=== PATIENT | female | born 1970 | race Hispanic/Latino ===

== ENCOUNTER → 2017-04-10 | Outpatient (CLI) | payer MEDICAID | END | disposition home or self-care (01) | LOC: RAH 09:13 | PROVIDERS: ATTEND Internal Medicine Gastroenterology | DX: K76.0 Fatty (change of) liver, not elsewhere classified (principal); Z90.81 Acquired absence of spleen | CPT/HCPCS: 76700; 78264; A9541 ==

== ENCOUNTER → 2017-12-13 | Outpatient (CLI) | payer MEDICAID ==
[~2017-12-13] MED LIST: ACET1TAB12 PO; AMYL1CAP63 PO; HYDR-4064 PO; INSU3INS9 SQ; LEVO125T11 PO; LEVO50TA11 PO; MAGOX PO; METF-446 PO; PIOG45TA64 PO; SAXA5TAB PO
== END | disposition home or self-care (01) ==
LOC: RAH 08:13
PROVIDERS: ATTEND Internal Medicine Gastroenterology
DX: K80.20 Calculus of gallbladder without cholecystitis without obstruction (principal); Z90.81 Acquired absence of spleen
CPT/HCPCS: 76700

== ENCOUNTER 2018-02-05 11:28 | Emergency (ER) | payer MEDICAID | END 2018-02-05 12:32 | disposition home or self-care (01) | LOC: EDH 11:28 | DX: Z48.01 Encounter for change or removal of surgical wound dressing (principal); J45.909 Unspecified asthma, uncomplicated; Z85.07 Personal history of malignant neoplasm of pancreas; Z90.710 Acquired absence of both cervix and uterus; Z90.49 Acquired absence of other specified parts of digestive tract; Z98.890 Other specified postprocedural states | CPT/HCPCS: 99281 ==

== ENCOUNTER 2018-07-15 18:50 | Emergency (ER) | payer MEDICAID, OTHER ==
[2018-07-15 19:36] LABS: RAPID GROUP A STREP NEGATIVE (NEGATIVE)
[2018-07-15] MEDS ORDERED: DEXAMETHASONE SOD PHOSPHATE 10MG/ML 1ML VIAL ONE (19:38)
[2018-07-15] MEDS ORDERED: ACETAMINOPHEN 325 MG TAB ONE (19:38)
[2018-07-15] MEDS ORDERED: IPRATROPIUM/ALBUTEROL SULFATE 3 ML SOLUTION IH ONE (19:44)
[2018-07-15] MEDS ORDERED: LIDOCAINE HCL-MPF 1% 2ML VIAL ONE (20:53)
[2018-07-15] MEDS ORDERED: CEFTRIAXONE SODIUM 1 GM ONE (20:53)
== END 2018-07-15 21:32 | disposition home or self-care (01) ==
LOC: EDH 18:50
DX: R05 Cough (principal); R50.9 Fever, unspecified; M79.10 Myalgia, unspecified site; J45.909 Unspecified asthma, uncomplicated; Z85.07 Personal history of malignant neoplasm of pancreas; Z90.49 Acquired absence of other specified parts of digestive tract; Z90.710 Acquired absence of both cervix and uterus
CPT/HCPCS: 71046; 87804 ×2; 87880; 96372 ×2; 99285; J0696; J1100; J3490

== ENCOUNTER 2018-10-07 19:09 | Emergency (ER) | payer MEDICAID, OTHER ==
[2018-10-07] MEDS ORDERED: ACETAMINOPHEN EXTRA STRENGTH 500 MG TABLET ONE (21:11)
== END 2018-10-07 21:28 | disposition home or self-care (01) ==
LOC: EDH 19:09
DX: S50.02XA Contusion of left elbow, initial encounter (principal); J45.909 Unspecified asthma, uncomplicated; Z90.710 Acquired absence of both cervix and uterus; Z90.49 Acquired absence of other specified parts of digestive tract; Z85.07 Personal history of malignant neoplasm of pancreas; Z98.890 Other specified postprocedural states; W07.XXXA Fall from chair, initial encounter; Y93.89 Activity, other specified; Y92.89 Other specified places as the place of occurrence of the external cause; Y99.8 Other external cause status
CPT/HCPCS: 73080

== ENCOUNTER → 2019-03-11 | Outpatient (CLI) | payer OTHER | END | disposition home or self-care (01) | LOC: OIH 13:08 | PROVIDERS: ATTEND Internal Medicine Cardiovascular Disease | DX: Z13.6 Encounter for screening for cardiovascular disorders (principal) | CPT/HCPCS: 75571 ==

== ENCOUNTER → 2019-04-23 | Outpatient (CLI) | payer MEDICAID | END | disposition home or self-care (01) | LOC: SHCH 15:52 | PROVIDERS: ATTEND Internal Medicine Cardiovascular Disease | DX: R00.2 Palpitations (principal) | CPT/HCPCS: 93306; 93356 ==

== ENCOUNTER → 2020-07-12 | Outpatient (CLI) | payer MEDICAID ==
[~2020-07-12] MED LIST changes: -ACET1TAB12 PO; -AMYL1CAP63 PO; -HYDR-4064 PO; -INSU3INS9 SQ; -LEVO125T11 PO; -LEVO50TA11 PO; -MAGOX PO; -SAXA5TAB PO
== END | disposition home or self-care (01) ==
LOC: RAH 11:14
PROVIDERS: ATTEND Internal Medicine Gastroenterology
DX: R93.3 Abnormal findings on diagnostic imaging of other parts of digestive tract (principal); R11.2 Nausea with vomiting, unspecified
CPT/HCPCS: 78264; A9541

== ENCOUNTER 2021-06-26 22:14 | Emergency (ER) | payer MEDICAID ==
[~2021-06-26] VITALS: Ht 152.4 cm; Wt 74.4 kg
[2021-06-26] MEDS ORDERED: ORPHENADRINE CITRATE 30 MG/ML ML ONE (22:54)
[2021-06-26] MEDS ORDERED: KETOROLAC 30MG VIAL (30MG/ML) ONE (22:54)
[2021-06-26] MEDS ORDERED: ORPHENADRINE CITRATE 30 MG/ML ML IM ONE (23:00)
[2021-06-26] MEDS ORDERED: KETOROLAC 30MG VIAL (30MG/ML) IM ONE (23:00)
[2021-06-26 23:04] LABS: BASOPHILS % (AUTO) 0.7 % (0.0-5.0); EOSINOPHILS % (AUTO) 1.7 % (0.0-8.0); HEMATOCRIT 51.5 % (36-48); LYMPHOCYTES % (AUTO) 33.4 % (21.0-51.0); MEAN CORPUSCULAR HEMOGLOBIN 31.9 pg (27.0-33.0); MEAN CORPUSCULAR HGB CONC 34.4 g/dL (32.0-36.0); MEAN CORPUSCULAR VOLUME 92.8 fL (79-99); MONOCYTES % (AUTO) 17.6 % (3.0-13.0); NEUTROPHILS % (AUTO) 46.4 % (40.0-77.0); PLATELET COUNT (AUTO) 323 K/uL (130-400); RED BLOOD CELL COUNT(AUTO) 5.55 MIL/uL (4.00-5.50); RED CELL DISTRIBUTION WIDTH 13.4 % (11.0-15.5); WHITE BLOOD COUNT (AUTO) 5.9 K/uL (4.8-10.8)
[2021-06-26 23:21] LABS: CREATININE 0.7 mg/dL (0.5-1.5); POTASSIUM 3.5 mmol/L (3.5-5.1)
[2021-06-26 23:26] LABS: BILIRUBIN,TOTAL 0.4 mg/dL (0.2-1.0)
[2021-06-26 23:27] LABS: ALBUMIN 3.4 g/dL (3.5-5.0); TOTAL PROTEIN, SERUM 7.5 g/dL (6.0-8.3)
[2021-06-26 23:50] VITALS: BP 110/49
[2021-06-26] MEDS ORDERED: NAPR500T6 PO (23:58)
[2021-06-26] MEDS ORDERED: CYCL10TA16 PO (23:58)
== END 2021-06-27 00:22 | disposition home or self-care (01) ==
LOC: EDH 22:14
DX: M54.6 Pain in thoracic spine (principal); E03.9 Hypothyroidism, unspecified; E11.9 Type 2 diabetes mellitus without complications; I10 Essential (primary) hypertension; J45.909 Unspecified asthma, uncomplicated; K21.9 Gastro-esophageal reflux disease without esophagitis; Z79.1 Long term (current) use of non-steroidal anti-inflammatories (NSAID); Z79.84 Long term (current) use of oral hypoglycemic drugs; Z90.49 Acquired absence of other specified parts of digestive tract
CPT/HCPCS: 36415; 71045; 80053; 84484; 85025; 93005; 96372 ×2; 99285; J1885; J2360

== ENCOUNTER 2023-12-10 21:59 | Emergency (ER) | payer BC, MEDICAID ==
[~2023-12-10] VITALS: Ht 152.4 cm; Wt 74.4 kg
[~2023-12-10 21:59] MED LIST changes: +CYCL10TA16 PO; +NAPR-1506 PO
[2023-12-10 23:09] LABS: BASOPHILS # (AUTO) 0.07 K/uL (0.00-0.20); BASOPHILS % (AUTO) 0.7 % (0.0-5.0); EOSINOPHILS # (AUTO) 0.35 K/uL (0.00-0.70); EOSINOPHILS % (AUTO) 3.5 % (0.0-8.0); HEMATOCRIT 46.9 % (36-48); IMMATURE GRANULOCYTE ABSOLUTE 0.04 K/uL (0-1); LYMPHOCYTES % (AUTO) 39.6 % (21.0-51.0); MEAN CORPUSCULAR HEMOGLOBIN 31.2 pg (27.0-33.0); MEAN CORPUSCULAR VOLUME 94.4 fL (79-99); MONOCYTES # (AUTO) 0.9 K/uL (0.1-1.0); NEUTROPHILS # (AUTO) 4.7 K/uL (1.8-7.7); NEUTROPHILS % (AUTO) 46.8 % (40.0-77.0); PLATELET COUNT (AUTO) 325 K/uL (130-400); RED BLOOD CELL COUNT(AUTO) 4.97 MIL/uL (4.00-5.50); RED CELL DISTRIBUTION WIDTH 13.4 % (11.0-15.5); WHITE BLOOD COUNT (AUTO) 10.1 K/uL (4.8-10.8)
[2023-12-10 23:17] LABS: CREATININE 0.8 mg/dL (0.5-1.0); POTASSIUM 3.8 mmol/L (3.5-5.1)
[2023-12-10 23:45] LABS: APPEARANCE,URINE CLEAR (CLEAR); BILIRUBIN,URINE NEGATIVE (NEGATIVE); COLOR,URINE LIGHT-YELLOW (YELLOW); GLUCOSE, URINE (UA) 200 mg/dL (NEGATIVE); KETONES,URINE 5 mg/dL (NEGATIVE); LEUKOCYTE ESTERASE ,URINE NEGATIVE Leu/uL (NEGATIVE); NITRATE,URINE NEGATIVE (NEGATIVE); OCCULT BLOOD,URINE NEGATIVE (NEGATIVE); PH,URINE 5.5 (5.0-8.0); PROTEIN,URINE 10 mg/dL (NEGATIVE); UROBILINOGEN,URINE 0.2 mg/dL (0.2-1.0)
[2023-12-10] MEDS: mecliZINE HCL 25 MG TABLET PO ONE (23:45)
[2023-12-10] MEDS: ondanSETRON 4MG INJ IVP ONE (23:45)
[2023-12-10] MEDS: 0.9%NACL 1000ML 1,000 ML IV ONE (23:45)
[2023-12-10 23:46] LABS: ADD UA MICROSCOPIC YES
[2023-12-10 23:47] LABS: BACTERIA,URINE FEW /HPF (None Seen); CALCIUM OXALATE CRYSTALS,UR RARE /LPF (None Seen); MUCUS,URINE RARE LPF (None Seen); SQUAMOUS EPITHELIAL CELL,UR RARE /HPF (0-2)
[2023-12-11] MEDS ORDERED: MECL-302 PO (00:36)
[2023-12-11 01:30] VITALS: BP 126/64; PULSE 78; RESP 20; TEMP 98.6; O2SAT 99
== END 2023-12-11 01:31 | disposition home or self-care (01) ==
LOC: EDH 21:59
DX: R42 Dizziness and giddiness (principal); J45.909 Unspecified asthma, uncomplicated; E11.9 Type 2 diabetes mellitus without complications; Z79.84 Long term (current) use of oral hypoglycemic drugs; Z90.49 Acquired absence of other specified parts of digestive tract
CPT/HCPCS: 99284; 96374; 70450; 96361; 84484; 80048; 85025; 81001; 36415; 93005; J7030; J2405

== ENCOUNTER 2023-12-16 14:58 | Emergency (ER) | payer BC ==
[~2023-12-16] VITALS: Ht 152.4 cm; Wt 74.4 kg
[~2023-12-16 14:58] MED LIST changes: +MECL-302 PO
[2023-12-16 14:59] VITALS: BP 116/85; PULSE 96; RESP 18; TEMP 98.7; O2SAT 99
[2023-12-16 15:24] LABS: BASOPHILS # (AUTO) 0.05 K/uL (0.00-0.20); BASOPHILS % (AUTO) 0.4 % (0.0-5.0); EOSINOPHILS # (AUTO) 0.16 K/uL (0.00-0.70); EOSINOPHILS % (AUTO) 1.4 % (0.0-8.0); IMMATURE GRANULOCYTE ABSOLUTE 0.04 K/uL (0-1); LYMPHOCYTES # (AUTO) 2.6 K/uL (1.0-4.8); LYMPHOCYTES % (AUTO) 22.4 % (21.0-51.0); MEAN CORPUSCULAR HEMOGLOBIN 31.5 pg (27.0-33.0); MEAN CORPUSCULAR HGB CONC 33.5 g/dL (32.0-36.0); MEAN CORPUSCULAR VOLUME 94.1 fL (79-99); MONOCYTES # (AUTO) 1.4 K/uL (0.1-1.0); MONOCYTES % (AUTO) 11.6 % (3.0-13.0); NEUTROPHILS # (AUTO) 7.5 K/uL (1.8-7.7); NEUTROPHILS % (AUTO) 63.9 % (40.0-77.0); PLATELET COUNT (AUTO) 329 K/uL (130-400); RED BLOOD CELL COUNT(AUTO) 5.42 MIL/uL (4.00-5.50); RED CELL DISTRIBUTION WIDTH 13.7 % (11.0-15.5); WHITE BLOOD COUNT (AUTO) 11.7 K/uL (4.8-10.8)
[2023-12-16 15:38] LABS: CREATININE 0.8 mg/dL (0.5-1.0); POTASSIUM 3.3 mmol/L (3.5-5.1)
[2023-12-16 15:40] LABS: PROTHROMBIN TIME 10.8 SEC (9.6-11.6)
[2023-12-16 15:42] LABS: PARTIAL THROMBOPLASTIN TIME 26.2 SEC (26.3-35.5)
[2023-12-16] MEDS: PANTOPrazole 40 MG/VIAL IVP ONE (16:38)
[2023-12-16] MEDS ORDERED: PANT40TA55 PO (17:12)
== END 2023-12-16 18:02 | disposition home or self-care (01) ==
LOC: EDH 14:58
DX: A08.4 Viral intestinal infection, unspecified (principal); E11.43 Type 2 diabetes mellitus with diabetic autonomic (poly)neuropathy; K31.84 Gastroparesis; E03.9 Hypothyroidism, unspecified; J45.909 Unspecified asthma, uncomplicated; Z79.84 Long term (current) use of oral hypoglycemic drugs; Z90.49 Acquired absence of other specified parts of digestive tract; Z90.710 Acquired absence of both cervix and uterus; Z98.890 Other specified postprocedural states
CPT/HCPCS: 99284; 96374; 80048; 83690; 85025; 85610; 85730; 86850; 86900; 86901; 36415; 93005; J2470

== ENCOUNTER → 2024-06-10 | Outpatient (CLI) | payer OTHER ==
[~2024-06-10] MED LIST changes: +PANT40TA55 PO
--- NOTE | 2024-06-10 16:24 | HMCIMG ---
LUMBAR SPINE RADIOGRAPHS - 2-3 VIEWS INDICATION: Back pain COMPARISON: None FINDINGS: AP, lateral, and coned-down lateral views. Normal lordotic curvature of the lumbar spine is maintained. Five nonrib-bearing lumbar vertebral bodies are noted. No acute fracture or subluxation identified. Vertebral body heights are well-maintained. Moderate disc height loss at the L5-S1 level along with mild vacuum disc phenomenon. Multilevel mild to moderate bilateral facet disease most pronounced at the lower lumbar spine levels. Multilevel mild anterior plate ossific spurring. IMPRESSION: Degenerative changes as described, without acute component.
--- NOTE | 2024-06-10 16:24 | HMCIMG ---
PA AND LATERAL CHEST RADIOGRAPH INDICATION: MODERATE ASTHMA COMPARISON: 06/26/2021 FINDINGS: Heart size is normal. The pulmonary vascularity and vkng appear normal. No abnormal pulmonary parenchymal opacity or consolidation identified. No significant pleural effusion noted. No pneumothorax detected. IMPRESSION: No radiographic evidence for any acute cardiopulmonary process.
== END | disposition home or self-care (01) ==
LOC: RAH 14:48
PROVIDERS: ATTEND Internal Medicine
DX: M47.816 Spondylosis without myelopathy or radiculopathy, lumbar region (principal); M54.50 Low back pain, unspecified; J45.40 Moderate persistent asthma, uncomplicated
CPT/HCPCS: 71046; 72100